=== PATIENT | female | born 1955 | race Caucasian/White ===

== ENCOUNTER → 2016-08-25 | Outpatient (CLI) | payer BC ==
--- NOTE | 2016-08-26 09:05 | DI ---
MRI RIGHT KNEE SCAN, 08/25/2016 9:58 AM: Clinical History: Right knee pain. Previous Exam: None at this facility. Technique: Axial, coronal, and sagittal PD and fat saturated PD; axial T1 weighted. There is no soft tissue edema. A large joint effusion is present with synovitis in the suprapatellar bursa and minimally in the region of Hoffa's fat pad. Increased signal intensity is present in the me dial aspect of the medial tibial plateau and in focal areas of the medial femoral condyle. The hyperi ntensities in the medial femoral condyle are subchondral in location and may represent development of small cyst. The hyperintensity in the medial tibial plateau would represent edema possibly from a taco ne contusion. There is intermediate signal intensity in the anterior and posterior margins of the med ial collateral ligament, the posterior margins of the medial patellofemoral ligament and medial retin aculum near the attachment to the MCL and the femur, and in the medial meniscofemoral and the menisco tibial ligaments all consistent with chronic partial tears. The anterior and posterior cruciate ligam ents and the lateral collateral ligament are normal. There is a large radial tear in the medial menis cus at the junction between the posterior horn and the body. The lateral meniscus is intact. The quad riceps and patellar tendons and the tendons of the medial and lateral heads of the gastrocnemius musc le are normal. There is increased signal intensity in the popliteus muscle with increased signal inte nsity in the tendon of the popliteus muscle consistent with partial tears or sprains of the muscle an d tendon. Fissuring is present in the cartilage of the medial tibial plateau at the site of bone flaco a and this represents a grade 2 and possibly even a grade 3 chondromalacia. There is thinning of the articular surface of the medial femoral condyle with irregularity consistent with a grade 2 chondroma lacia. There is mild lateral subluxation of the patella and a subchondral cyst is developing in the m edial facet superiorly where there is thinning of the articular cartilage probably representing a gra de 2 chondromalacia. The lateral facet is intact. The articular surfaces of the medial compartment ar e intact although there is hypointensity in the cartilage of the lateral tibial plateau suggesting ch ondrocalcinosis. Readin. Large joint effusion with synovitis. There is bone edema involving the medial tibial plateau poss ibly related to a bone contusion. A large radial tear is present in the medial meniscus at the juncti on of the body and posterior horn with chronic tears involving the MCL, medial meniscal femoral and t he meniscotibial ligaments. Subchondral cysts are present or developing in the superior aspect of the patella and in the medial femoral condyle. Mild subluxation of the patella laterally is present with evidence of chronic partial tears with elongation of the medial patellofemoral ligament and the medi al retinaculum. There is a popliteus muscle strain or partial tear with a partial tear of that tendon . Grade 2 and possibly grade 3 chondromalacia is present in the medial tibial plateau. Grade 2 chondr omalacia changes are present in the medial femoral condyle and in the medial facet of the patella. 2. The ACL, PCL, lateral collateral ligament and the lateral meniscus are normal. The quadriceps and patellar tendons and the tendons of the medial and lateral heads of the gastrocnemius muscle are nor mal. Lateral compartment articular surfaces are intact but there may be chondrocalcinosis.
== END ==
LOC: MRI 09:44
PROVIDERS: ATTEND Physician Assistant Surgical
DX: M25.561 Pain in right knee (principal); M25.461 Effusion, right knee; M23.221 Derangement of posterior horn of medial meniscus due to old tear or injury, right knee; S83.411A Sprain of medial collateral ligament of right knee, initial encounter; M94.261 Chondromalacia, right knee
CPT/HCPCS: 73721

== ENCOUNTER → 2016-11-24 | Outpatient (CLI) | payer BC ==
--- NOTE | 2016-11-24 20:33 | DI ---
CT BONE DENSITOMETRY OF THE SPINE AND HIP, 11/24/2016 2:41 PM : Clinical History: Osteoporosis. Previous Exam: 12/07/2013. 3D Quantitative CT (QCT) Bone Mineral Densitometry: The [place] scans are normal in the lumbar spine but show mild osteoporotic compression fractures at T8 and T9. Low dose scans are sampled through the midbodies of L1 and L2. Average bone mineral densit y (BMD) is 71.2 mg/mL corresponding to a volumetric T-score of -3.7, and Z-score of -1.2. The [employer]'s (ACR) volumetric QCT BMD conversion table categorizes this patient as having osteoporosis of the lumbar spine. The previous exam gave a bone mineral density of 65.[address] X-Ray Absorptiometry (CTXA) Bone Mineral Densitometry of the Left Hip: Total hip BMD: 672 mg/cm2 T-score: -2.2 Z-score: -1.1 Femoral neck BMD: 567 mg/cm2 T-score: -2.1 Z-score: -0.9 READIN. The QCT lumbar spine BMD value by ACR's 3D volumetric to 2D areal conversion categorizes this pat ient as having osteoporosis of the lumbar spine. 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 2. The CTXA total hip and femoral neck BMD T-scores are -2.2 and -2.1, respectively. The left total hip T-score indicates this patient has osteopenia of the total hip.
== END ==
LOC: CT 14:36
PROVIDERS: ATTEND Nurse Practitioner Family
DX: M81.0 Age-related osteoporosis without current pathological fracture (principal)
CPT/HCPCS: 77078